=== PATIENT | male | born 1950 | race Caucasian/White ===

== ENCOUNTER 2020-06-13 09:06 | Inpatient (IN) ==
[2020-06-13] MEDS ORDERED: CeFAZolin Syr 2,000MG/20 ML 2,000 MG/20 ML SYRINGE IVPB ONE (09:27)
[2020-06-13] MEDS ORDERED: Ringers Solution, Lactated 1,000 ML IVC SCH ×2 (09:30→10:30)
[2020-06-13 09:47] LABS: Basophils # 0.1 K/mcL (0.0-0.2); Basophils % 0.9 %; Eosinophils # 0.1 K/mcL (0.0-0.6); Eosinophils % 1.4 %; Hematocrit 44.9 % (37.5-50.1); Hemoglobin 14.6 g/dL (12.9-16.9); Immature Granulocytes % 0.4 % (0-4); Lymphocytes # 1.9 K/mcL (0.6-4.6); Mean Corpuscular HGB Conc 32.5 g/dL (31.6-35.5); Mean Corpuscular Hemoglobin 29.3 pg (28.0-33.3); Mean Corpuscular Volume 90.2 fL (83.0-100.0); Mean Platelet Volume 9.1 fL (9.4-12.4); Monocytes # 0.9 K/mcL (0.0-1.3); Monocytes % 8.7 %; Platelet Count 419 K/mcL (140-400); Red Blood Count 4.98 M/mcL (4.19-5.50); Red Cell Distribution Width 12.9 % (11.5-14.5); Segmented Neutrophils % 69.6 %
[2020-06-13] MEDS ORDERED: *HR* Rocuronium Bromide 50 MG/5 ML VIAL ONE ×2 (10:09→12:52)
[2020-06-13] MEDS ORDERED: Lidocaine -MPF 2% 2 ML VIAL ONE (10:09)
[2020-06-13] MEDS ORDERED: *HR* Propofol 200 MG/20 ML VIAL IVP ONE (10:09)
[2020-06-13] MEDS ORDERED: Ondansetron 4 MG/2 ML VIAL ONE (10:09)
[2020-06-13] MEDS ORDERED: *HR* FentaNYL (PF) 100 MCG/2 ML VIAL ONE ×2 (10:10→12:53)
[2020-06-13] MEDS ORDERED: Ondansetron 4 MG/2 ML VIAL IVP PRN ×2 (10:29→16:27)
[2020-06-13] MEDS ORDERED: *HR* Labetalol 20 MG/4 ML SYRINGE IVP PRN ×2 (10:29→16:27)
[2020-06-13] MEDS ORDERED: *HR* HYDROmorphone PF 0.5 MG/0.5 ML SYRINGE IVP PRN (10:29)
[2020-06-13] MEDS ORDERED: *HR* OxyCODONE Immed Rel 5 MG TABLET PO PRN ×2 (10:29→16:27)
[2020-06-13] MEDS ORDERED: Vancomycin 1,000 MG, Sodium Chloride IRRigation 1,000 ML IR ONE (11:10)
[2020-06-13] MEDS ORDERED: Heparin 1,000 UNITS/500 mL 0 ML ONE (11:16)
[2020-06-13] MEDS ORDERED: Bupivacaine-MPF 0.25% 10 ML VIAL ONE (11:29)
[2020-06-13] MEDS ORDERED: Heparin 1,000 UNITS/500 mL 1,000 ML ONE (11:29)
[2020-06-13] MEDS ORDERED: Protamine Sulfate 50 MG/5 ML VIAL IVP ONE (11:29)
[2020-06-13] MEDS ORDERED: NiCARdipine 2.5 MG/10 ML Syringe IVPB ONE (11:31)
[2020-06-13] MEDS ORDERED: EPHEDrine 50 MG/ML VIAL ONE (12:44)
[2020-06-13] MEDS ORDERED: Sugammadex Sodium 200 MG/2 ML VIAL IV ONE (14:03)
[2020-06-13] MEDS ORDERED: Ipratropium/Albuterol Neb 3 ML IH PRN (16:27)
[2020-06-13] MEDS ORDERED: 0.9 % Sodium Chloride 500 ML IVC SCH (16:27)
[2020-06-13] MEDS ORDERED: Naloxone 0.4 MG/ML INJ IVP PRN (16:27)
[2020-06-13] MEDS ORDERED: *HR* HYDROcodone/Acet 5/325 mg TABLET PO PRN (16:27)
[2020-06-13] MEDS ORDERED: Acetaminophen 325 MG TABLET PO PRN (16:27)
[2020-06-13] MEDS: *HR* Metoprolol 5 MG/5 ML VIAL IVP SCH (17:36)
[2020-06-13] MEDS: CeFAZolin 2 GM/120 ML BAG IVPB SCH (20:24)
[2020-06-13] MEDS: Sulfamethoxazole/Trimeth DS 1 EACH TABLET PO SCH (20:25)
[2020-06-13] MEDS ORDERED: QUEtiapine Fumarate 100 MG TABLET PO SCH (21:00)
[2020-06-13] MEDS: GLYCOPYR IH SCH (22:00)
[2020-06-13] MEDS: FORMOTEROL IH SCH (22:00)
[2020-06-13] MEDS: BUDESONIDE IH SCH (22:00)
[2020-06-14] MEDS: *HR* Metoprolol 5 MG/5 ML VIAL IVP SCH ×2 (00:17→04:51)
[2020-06-14] MEDS: CeFAZolin 2 GM/120 ML BAG IVPB SCH (04:51)
[2020-06-14] MEDS ORDERED: *HR* Heparin 5,000 UNIT/ML VIAL SQ SCH ×2 (06:00)
[2020-06-14 07:20] VITALS: BP 123/70
[2020-06-14] MEDS: Sulfamethoxazole/Trimeth DS 1 EACH TABLET PO SCH (08:23)
[2020-06-14] MEDS: BUDESONIDE IH SCH (08:27)
[2020-06-14] MEDS: GLYCOPYR IH SCH (08:27)
[2020-06-14] MEDS: FORMOTEROL IH SCH (08:27)
[2020-06-14] MEDS ORDERED: Fenofibrate 54 MG TABLET PO SCH (09:00)
[2020-06-14] MEDS ORDERED: Famotidine 20 MG TABLET PO SCH (09:00)
[2020-06-14] MEDS ORDERED: hydroCHLOROthiazide 25 MG TABLET PO SCH (09:00)
== END 2020-06-14 09:40 | disposition home or self-care (01) | DRG 39 ==
LOC: SAMDAY 09:06 → 2NNU 16:23
PROVIDERS: ADMIT Surgery; ATTEND Surgery

== ENCOUNTER 2021-09-14 12:58 | Observation (INO) ==
[2021-09-14 14:04] LABS: Hematocrit 44.1 % (37.5-50.1); Mean Corpuscular Hemoglobin 30.1 pg (28.0-33.3); Mean Corpuscular Volume 88.4 fL (83.0-100.0); Mean Platelet Volume 9.9 fL (9.4-12.4); Platelet Count 382 K/mcL (140-400); Red Blood Count 4.99 M/mcL (4.19-5.50); Red Cell Distribution Width 12.2 % (11.5-14.5); White Blood Count 12.1 K/mcL (4.3-11.1)
[2021-09-14 14:17] LABS: Albumin 4.4 g/dL (3.5-5.7); Albumin/Globulin Ratio 1.6 (1.1-2.2); Bilirubin,Direct 0.2 mg/dL (0.0-0.2); Bilirubin,Indirect 0.6 mg/dL (0.0-1.0); Bilirubin,Total 0.8 mg/dL (0.3-1.0); Globulin 2.8 g/dL (2.4-3.5); Potassium 3.8 mEq/L (3.5-5.1); Total Protein 7.2 g/dL (6.4-8.9)
[2021-09-14] MEDS ORDERED: 0.9 % Sodium Chloride 1,000 ML IVC ONE (16:48)
[2021-09-14] MEDS ORDERED: Naloxone 0.4 MG/ML INJ IVP PRN (17:02)
[2021-09-14] MEDS ORDERED: Ondansetron 4 MG/2 ML VIAL IVP PRN (17:02)
[2021-09-14] MEDS ORDERED: Ipratropium/Albuterol Neb 3 ML IH PRN (17:15)
[2021-09-14] MEDS: Ringers Solution, Lactated 1,000 ML IVC SCH (18:30)
[2021-09-14] MEDS: Pantoprazole 40 MG VIAL IVP SCH (18:30)
[2021-09-14 21:19] LABS: Bacteria,Urine Few per hpf (None-Few); Bilirubin,Urine Negative (Negative); Blood,Urine Negative (Negative); Clarity,Urine Clear (Clear); Color,Urine Yellow (Yellow); Glucose,Urine (UA) Normal (Normal); Hyaline Casts,Urine Many per lpf (None Seen); Ketones,Urine 40 mg/dL (Negative); Leukocyte Esterase,Urine Small (Negative); Mucus,Urine Few per lpf (None-Few); Nitrite,Urine Negative (Negative); PH,Urine 5.5 pH Units (5.0-8.0); Protein,Urine 30 mg/dL (Neg-Trace); Specific Gravity,Urine 1.029 (1.010-1.025); Squamous Epithelial Cell,Urine Few per hpf (None-Few)
[2021-09-14] MEDS: Budesonide/Glycopyr/Formoterol [Breztri Aerosphere] IH SCH (21:58)
[2021-09-15 03:21] LABS: Basophils # 0.1 K/mcL (0.0-0.2); Basophils % 0.5 %; Eosinophils # 0.1 K/mcL (0.0-0.6); Eosinophils % 0.9 %; Hematocrit 38.8 % (37.5-50.1); Immature Granulocytes % 0.6 % (0-4); Lymphocytes # 1.3 K/mcL (0.6-4.6); Lymphocytes % 13.4 %; Mean Corpuscular HGB Conc 34.5 g/dL (31.6-35.5); Mean Corpuscular Hemoglobin 30.3 pg (28.0-33.3); Mean Corpuscular Volume 87.8 fL (83.0-100.0); Monocytes # 1.1 K/mcL (0.0-1.3); Monocytes % 10.8 %; Neutrophils # 7.2 K/mcL (1.6-8.9); Platelet Count 331 K/mcL (140-400); Red Blood Count 4.42 M/mcL (4.19-5.50); Red Cell Distribution Width 12.2 % (11.5-14.5); Segmented Neutrophils % 73.8 %; White Blood Count 9.8 K/mcL (4.3-11.1)
[2021-09-15 03:42] LABS: Hemoglobin 13.4 g/dL (12.9-16.9)
[2021-09-15 03:43] LABS: BUN/Creatinine Ratio 28 (6-26); Blood Urea Nitrogen 33 mg/dL (8-23); Calcium 9.1 mg/dL (8.6-10.3); Carbon Dioxide 24 mEq/L (23-29); Chloride 98 mEq/L (98-107); Glucose 90 mg/dL (70-105); Magnesium 1.7 mg/dL (1.6-2.6); Osmolality,Calculated 291 (280-300); Phosphorous 3.1 mg/dL (2.7-4.5); Potassium 3.8 mEq/L (3.5-5.1); Sodium 137 mEq/L (136-145); eGFR For African Americans > 60 (> 60); eGFR For Non-African Americans > 60 (> 60)
[2021-09-15] MEDS: Pantoprazole 40 MG VIAL IVP SCH ×2 (06:27→16:33)
[2021-09-15] MEDS: Budesonide/Glycopyr/Formoterol [Breztri Aerosphere] IH SCH (09:08)
[2021-09-15] MEDS: Budesonide/Formoterol 160/4.5 1 PUFF INH IH SCH ×2 (10:45→22:21)
[2021-09-15] MEDS: Ringers Solution, Lactated 1,000 ML IVC SCH ×3 (12:35→23:54)
[2021-09-15] MEDS ORDERED: *HR* Propofol 200 MG/20 ML VIAL IVP ONE (13:17)
[2021-09-15] MEDS ORDERED: Lidocaine -MPF 2% 2 ML VIAL ONE (13:17)
[2021-09-16] MEDS ORDERED: Dextrose 4 GM Chewable Tablets PO PRN ×2 (00:22)
[2021-09-16] MEDS ORDERED: D5% in Water 1,000 ML IVC PRN (00:22)
[2021-09-16] MEDS ORDERED: *HR* Dextrose 50 % in Water (Syg) 50 ML SYRINGE IVP PRN (00:22)
[2021-09-16 00:59] LABS: Basophils # 0.1 K/mcL (0.0-0.2); Basophils % 0.5 %; Eosinophils # 0.2 K/mcL (0.0-0.6); Eosinophils % 2.4 %; Hematocrit 39.6 % (37.5-50.1); Hemoglobin 13.3 g/dL (12.9-16.9); Immature Granulocytes % 0.3 % (0-4); Lymphocytes # 1.5 K/mcL (0.6-4.6); Lymphocytes % 14.8 %; Mean Corpuscular HGB Conc 33.6 g/dL (31.6-35.5); Mean Corpuscular Hemoglobin 30.1 pg (28.0-33.3); Mean Corpuscular Volume 89.6 fL (83.0-100.0); Mean Platelet Volume 9.8 fL (9.4-12.4); Monocytes % 9.9 %; Neutrophils # 7.3 K/mcL (1.6-8.9); Platelet Count 300 K/mcL (140-400); Red Blood Count 4.42 M/mcL (4.19-5.50); Red Cell Distribution Width 12.4 % (11.5-14.5); Segmented Neutrophils % 72.1 %; White Blood Count 10.1 K/mcL (4.3-11.1)
[2021-09-16 01:17] LABS: BUN/Creatinine Ratio 33 (6-26); Blood Urea Nitrogen 32 mg/dL (8-23); Calcium 8.9 mg/dL (8.6-10.3); Carbon Dioxide 27 mEq/L (23-29); Chloride 100 mEq/L (98-107); Glucose 77 mg/dL (70-105); Magnesium 1.9 mg/dL (1.6-2.6); Osmolality,Calculated 294 (280-300); Phosphorous 2.2 mg/dL (2.7-4.5); Potassium 3.8 mEq/L (3.5-5.1); Sodium 139 mEq/L (136-145); eGFR For African Americans > 60 (> 60); eGFR For Non-African Americans > 60 (> 60)
[2021-09-16] MEDS: Pantoprazole 40 MG VIAL IVP SCH ×2 (06:56→18:13)
[2021-09-16] MEDS: Ringers Solution, Lactated 1,000 ML IVC SCH ×2 (10:00→19:50)
[2021-09-16] MEDS ORDERED: E-Z-PAQUE (BARIUM SULF) SUSP 1 BOTTLE PO ONE (11:04)
[2021-09-16] MEDS ORDERED: E-Z-HD (BARIUM SULF) SUSPENSION PO ONE (11:04)
[2021-09-16] MEDS: Budesonide/Formoterol 160/4.5 1 PUFF INH IH SCH (20:08)
[2021-09-16] MEDS ORDERED: *HR* OxyCODONE Immed Rel 5 MG TABLET PO PRN (20:27)
[2021-09-17] MEDS: Ringers Solution, Lactated 1,000 ML IVC SCH (05:45)
[2021-09-17] MEDS: Pantoprazole 40 MG VIAL IVP SCH (05:45)
[2021-09-17 07:13] VITALS: BP 165/90; PULSE 67; TEMP 97.8; O2SAT 96
[2021-09-17 09:17] LABS: Estimated Average Glucose 120 mg/dl; Hemoglobin A1C 5.8 %
[2021-09-17] MEDS: Budesonide/Formoterol 160/4.5 1 PUFF INH IH SCH (10:08)
== END 2021-09-17 13:43 | disposition hospice, home (50) ==
LOC: 3ANU 12:58 → EMEROOARM 12:58 → SUATTDRO 17:08 → 3ANU 18:00
PROVIDERS: ADMIT Pharmacist; ATTEND Family Medicine
PROC: ENDOEDS (2021-09-15 14:30)